=== PATIENT | male | born 1945 | race American Indian/Alaskan Native ===

== ENCOUNTER 2016-10-12 00:52 | Inpatient (IN) | payer MEDICARE ==
[2016-10-12 02:25] LABS: Basophils % (Auto) 0.1 % (0.0-1.8); Eosinophils % (Auto) 0.1 % (0.0-4.3); Hematocrit 38.6 % (35.5-45.6); Hemoglobin 11.9 gm/dl (11.8-15.2); Mean Corpuscular HGB Conc 31 % (32-34); Mean Corpuscular Hemoglobin 26 pg (28-32); Mean Corpuscular Volume 85 fl (84-94); Platelet Count 269 K/mm3 (140-440); Red Blood Count 4.55 M/mm3 (3.65-5.03); White Blood Count 8.5 K/mm3 (4.5-11.0)
[2016-10-12 02:26] LABS: Red Cell Distribution Width 21.5 % (13.2-15.2)
[2016-10-12 02:47] LABS: Anion Gap 25 mmol/L; BUN/Creatinine Ratio 72.85; Blood Urea Nitrogen 51 mg/dL (9-20); Carbon Dioxide 19 mmol/L (22-30); Chloride 100.1 mmol/L (98-107); Glucose 100 mg/dL (75-100); Sodium 140 mmol/L (137-145)
--- NOTE | 2016-10-12 03:28 | Emergency Department Report ---
ED General Adult HPI - General Chief complaint: Weakness Stated complaint: GENERAL ILLNESS Time Seen by Provider: 10/12/16 02:56 Source: patient, EMS Mode of arrival: Stretcher Limitations: No Limitations - History of Present Illness Initial comments: 71-year-old male with history of metastatic prostate cancer, prior spontaneous pneumothorax presented today because of cough and dehydration. Patient states that the cough hasn't gone on for the last 2 weeks. This is productive and very bothersome to the patient. He has not had much by mouth intake of fluids or food because of this. He denies any fevers or chills. He is a current tobacco smoker. No significant shortness of breath. Patient also has a chronic indwelling [place] which appears to have had decreased output. Severity scale (0 -10): 7 - Related Data Home Medications Medication Instructions Recorded Confirmed Last Taken Morphine Sulfate [Morphine Sulfate 60 mg PO BID PRN 01/23/15 10/12/16 1 Day Ago ER] 60 Previous Rx's Medication Instructions Recorded Last Taken Type Albuterol *Only Ed* [Proventil 2.5 mg IH Q4HRT PRN #30 nebu 11/24/15 1 Day Ago Rx 0.5% NEBS] Hydromorphone HCl [Dilaudid] 4 mg PO TID PRN #30 tablet 11/24/15 1 Day Ago Rx 4 Levofloxacin [Levaquin TAB] 500 mg PO QDAY #4 tablet 11/24/15 1 Day Ago Rx 500 Allergies Allergy/AdvReac Type Severity Reaction Status Date / Time Penicillins AdvReac Severe SEIZURES Verified 10/12/16 04:22 ED Review of Systems ROS: Stated complaint: GENERAL ILLNESS Other details as noted in HPI Comment: All other systems reviewed and negative Constitutional: denies: chills, fever Cardiovascular: denies: chest pain Gastrointestinal: denies: abdominal pain, vomiting Genitourinary: denies: dysuria Musculoskeletal: denies: back pain Skin: denies: rash Psychiatric: denies: anxiety ED Past Medical Hx - Past Medical History Previous Medical History?: Yes Hx Hypertension: Yes Hx GERD: Yes Hx Renal Disease: No Hx Arthritis: Yes Hx Seizures: No Hx Asthma: No Hx COPD: No Additional medical history: Stage 4 prostate cancer. Indwelling folley catheter - Surgical History Past Surgical History?: No - Social History Smoking Status: Never Smoker Substance Use Type: None - Medications Home Medications: Home Medications Medication Instructions Recorded Confirmed Last Taken Type Morphine Sulfate [Morphine Sulfate 60 mg PO BID PRN 01/23/15 10/12/16 1 Day Ago History ER] 60 Albuterol *Only Ed* [Proventil 2.5 mg IH Q4HRT PRN #30 nebu 11/24/15 10/12/16 1 Day Ago Rx 0.5% NEBS] Hydromorphone HCl [Dilaudid] 4 mg PO TID PRN #30 tablet 11/24/15 10/12/16 1 Day Ago Rx 4 Levofloxacin [Levaquin TAB] 500 mg PO QDAY #4 tablet 11/24/15 10/12/16 1 Day Ago Rx 500 ED Physical Exam - General Limitations: No Limitations General appearance: alert, in no apparent distress - Eye Eye exam: Present: normal appearance - ENT ENT exam: Present: mucous membranes dry - Respiratory Respiratory exam: Present: rhonchi. Absent: respiratory distress - Cardiovascular Cardiovascular Exam: Present: regular rate, normal rhythm - GI/Abdominal GI/Abdominal exam: Present: soft. Absent: distended, tenderness - Neurological Exam Neurological exam: Present: alert. Absent: motor sensory deficit - Psychiatric Psychiatric exam: Present: normal affect - Skin Skin exam: Present: other (ecchymosis along right lower leg and decubitus ulcers that don't appear to be acutely infected) ED Course Vital Signs 10/12/16 10/12/16 10/12/16 01:14 01:23 05:34 Temperature 97.8 F Pulse Rate 97 H 103 H 90 Respiratory 24 21 18 Rate Blood Pressure 115/75 Blood Pressure 115/74 115/78 106/71 [Left] O2 Sat by Pulse 97 98 97 Oximetry ED Medical Decision Making - Lab Data Result diagrams: 10/12/16 01:45 10/12/16 01:45 Critical care attestation.: If time is entered above; I have spent that time in minutes in the direct care of this critically ill patient, excluding procedure time. ED Disposition Clinical Impression: Dehydration Disposition: OP ADMITTED IP TO THIS HOSP Is pt being admited?: Yes Does the pt Need Aspirin: No Condition: Stable
[2016-10-12] MEDS ORDERED: NACL 0.9% 1000 ML 1,000 ML IV ONE ×2 (03:29)
--- NOTE | 2016-10-12 04:38 | XRay Report ---
FINAL REPORT PROCEDURE: XR CHEST 1V AP TECHNIQUE: Chest radiograph anteroposterior view. CPT 00124 HISTORY: cough COMPARISON: No prior studies are available for comparison. FINDINGS: Heart: Normal. Mediastinum/Vessels: Normal. Lungs/Pleural space: The lungs are well-expanded. There is a right pleural effusion. There are no discrete infiltrates or pneumothoraces.. Bony thorax: There are diffuse blastic skeletal lesions involving the right scapula, multiple ribs, thoracic spine and left humerus suspicious for metastatic malignancy.. Life support devices: None. IMPRESSION: The heart size is normal.. The lungs are well-expanded. There is a right pleural effusion. There are no discrete infiltrates or pneumothoraces.. There are diffuse blastic skeletal lesions involving the right scapula, multiple ribs, thoracic spine and left humerus suspicious for metastatic malignancy..
[2016-10-12] MEDS ORDERED: DULCOLAX PR PRN (05:26)
[2016-10-12] MEDS ORDERED: ZOFRAN IV PRN (05:26)
--- NOTE | 2016-10-12 05:39 | History and Physical Report ---
History of Present Illness Date of examination: 10/12/16 History of present illness: 71 -year-old man with a history of metastatic prostate cancer, GERD, hypertension comes emergency room because of generalized weakness, unable to get out of his wheelchair Patient denies chest pain, palpitation, shortness of breath, cough, abdominal pain, hematochezia, dysuria, frequency, focal weakness, dysarthria, fever chills , polydipsia polyuria, hot or cold intolerance, easy bruisability, or rash or bleeding from mucosal membrane, rhinorrhea, epistaxis, earache, tinnitus, blurry vision, eye discharge, anxiety, depression. Other review of systems negative PAST SURGICAL HISTORY: None SOCIAL HISTORY: Smoke half pack a day, no alcohol, no drug FAMILY HISTORY: Hypertension Medications and Allergies Allergies Allergy/AdvReac Type Severity Reaction Status Date / Time Penicillins AdvReac Severe SEIZURES Verified 10/12/16 04:22 Home Medications Medication Instructions Recorded Confirmed Last Taken Type Morphine Sulfate [Morphine Sulfate 60 mg PO BID PRN 01/23/15 10/12/16 1 Day Ago History ER] 60 Albuterol *Only Ed* [Proventil 2.5 mg IH Q4HRT PRN #30 nebu 11/24/15 10/12/16 1 Day Ago Rx 0.5% NEBS] Hydromorphone HCl [Dilaudid] 4 mg PO TID PRN #30 tablet 11/24/15 10/12/16 1 Day Ago Rx 4 Levofloxacin [Levaquin TAB] 500 mg PO QDAY #4 tablet 11/24/15 10/12/16 1 Day Ago Rx 500 Exam - Physical Exam Narrative exam: Gen. appearance: Patient lying in bed, no apparent distress HEENT: Normocephalic, atraumatic, pupils equally round and reactive to light, extraocular movement intact, and no sclericterus,. No JVD or thyromegaly or nodule,neck supple, no carotid bruit ,mucous membranes moist, no exudate or erythema Heart: S1, S2, regular rate and rhythm Lungs: Clear to auscultation bilaterally, breathing comfortable Abdomen:suprapubic catheter, Positive bowel sounds, nontender, nondistended, no organomegaly Extremity: No edema, cyanosis, clubbing Skin: Sacral decubitus, No rash, nodules, warm, dry Neuro: Oriented 3, cranial nerves II-12 intact, speech is fluent, motor and sensory intact - Constitutional Vitals: Temp Pulse Resp BP Pulse Ox 98.4 F 90 18 106/71 97 10/12/16 01:14 10/12/16 05:34 10/12/16 05:34 10/12/16 05:34 10/12/16 05:34 Results - Labs CBC & Chem 7: 10/12/16 01:45 10/12/16 01:45 Labs: Abnormal lab results 10/12/16 10/12/16 Range/Units 01:45 01:45 MCH 26 L (28-32) pg MCHC 31 L (32-34) % RDW 21.5 H (13.2-15.2) % Lymph % (Auto) 8.1 L (13.4-35.0) % [place] % (Auto) 9.7 H (0.0-7.3) % Lymph # 0.7 L (1.2-5.4) K/mm3 Seg Neutrophils % 82.0 H (40.0-70.0) % Carbon Dioxide 19 L (22-30) mmol/L BUN 51 H (9-20) mg/dL Creatinine 0.7 L (0.8-1.5) mg/dL - Imaging and Cardiology EKG: image reviewed Chest x-ray: report reviewed Assessment and Plan Failure to thrive Severe dehydration Sacral decubitus Metastatic prostate cancer Hypertension GERD Admit to medicine Start IV fluids, consult physical therapy Continue appropriate outpatient medications Consult wound care start DVT prophylaxis
--- NOTE | 2016-10-12 06:18 | Admit Criteria Form ---
Admission Criteria Documentation: DEHYDRATION Clinical Indications for Admission to Inpatient Care (Place 'X' for any and all applicable criteria): Admission is indicated for ANY ONE of the following (1)(2)(3)(4)(5): [X ]I. Inpatient admission required rather than observation care (see Dehydration: Observation Care guideline as appropriate) because of ANY ONE of the following: [ ]a) Vomiting that is severe or persistent [ ]b) Severe electrolyte abnormalities requiring inpatient care [ ]c) Hemodynamic instability [ ]d) IV fluid to replace significant ongoing losses (greater than 3 L/m2 per day (10) (11) [ ]e) Parenteral nutrition regimen that must be implemented on inpatient basis [X ]f) Other condition,treatment or monitoring requiring inpatient admission [ ]II. Serious cause for dehydration requiring acute hospitalization (eg, bowel obstruction, increased intracranial pressure, infectious cause) Extended stay beyond goal length of stay may be needed for(1)(3 )(4)(17): [ ]a) Chronic severe dehydration [ ]b) Persistent vital sign changes, severe electrolyte imbalance, or diagnosed cause of dehydration that requires continued hospitalization (eg, bowel obstruction, increased intracranial pressure) [ ]c) Older patients (65 years or older) [ ]d) Severe comorbid illness (eg, renal failure, heart failure, poorly controlled diabetes) The original [employer] content created by [employer] has been revised. The portions of the content which have been revised are identified through the use of italic text or in bold, and [facility] has neither reviewed nor approved the modified material. All other unmodified content is copyright [facility]. Please see references footnoted in the original [facility] edition 2016 Admission Criteria Met: Yes
[2016-10-12 06:47] LABS: Bacteria,Urine 3+ /HPF (Negative); Bilirubin,Urine NEG (Negative); Blood,Urine SM (Negative); Granular Casts,Urine 50 /LPF; Ketones,Urine TR mg/dL (Negative); Leukocyte Esterase,Urine MOD (Negative); Mucus,Urine 3+ /HPF; Nitrite,Urine NEG (Negative); Protein,Urine >500 mg/dL (Negative); Urobilinogen,Urine < 2.0 mg/dL (<2.0)
[2016-10-12] MEDS ORDERED: LOVENOX SUB-Q SCH (10:00)
[2016-10-12] MEDS: LOVENOX SUB-Q SCH (11:00)
[2016-10-12] MEDS: NACL 0.9% 1000 ML 1,000 ML IV SCH (14:23)
--- NOTE | 2016-10-12 18:15 | Event Note ---
Date: 10/12/16 Patient seen and examined, in no acute distress. Spoke with patients house keepers who are very concerned that patient cannot take care of himself. Patient may benefit from psych eval. Call placed to daughter [phone]
[2016-10-12] MEDS: TYLENOL PO PRN (23:52)
[2016-10-13] MEDS: NACL 0.9% 1000 ML 1,000 ML IV SCH (03:38)
[2016-10-13 07:53] LABS: Anion Gap 16 mmol/L; Blood Urea Nitrogen 24 mg/dL (9-20); Calcium 8.3 mg/dL (8.4-10.2); Carbon Dioxide 22 mmol/L (22-30); Chloride 108.5 mmol/L (98-107); Glucose 77 mg/dL (75-100); Potassium 3.4 mmol/L (3.6-5.0); Sodium 143 mmol/L (137-145)
[2016-10-13] MEDS: LOVENOX SUB-Q SCH (09:19)
[2016-10-13] MEDS: TYLENOL PO PRN (09:25)
[2016-10-13 10:29] LABS: Basophils % (Auto) 0.1 % (0.0-1.8); Eosinophils % (Auto) 0.8 % (0.0-4.3); Hematocrit 32.1 % (35.5-45.6); Hemoglobin 9.8 gm/dl (11.8-15.2); Mean Corpuscular HGB Conc 31 % (32-34); Mean Corpuscular Volume 84 fl (84-94); Platelet Count 220 K/mm3 (140-440); Red Blood Count 3.82 M/mm3 (3.65-5.03); White Blood Count 5.7 K/mm3 (4.5-11.0)
[2016-10-13 10:45] LABS: Mean Corpuscular Hemoglobin 26 pg (28-32); Red Cell Distribution Width 22.3 % (13.2-15.2)
[2016-10-13] MEDS ORDERED: PNEUMOVAX 23 IM ONE (12:00)
--- NOTE | 2016-10-13 15:50 | Consultation ---
History of Present Illness - Reason for Consult Consult date: 10/13/16 Reason for consult: psychiatric evaluation - Chief Complaint Chief complaint: "Some people think I'm a lunatic" 71 year old black male seen on the medical floor/step down unit for psychiatric evaluation. There is a question about his decision making capacity. He was sent to the hospital after his home health nurse called EMS for significant weight loss in a 2 week time period and malnourished state. He has been unable to ambulate or wheel himself to the location where the home helpers leave his food. He reports having mucous in his mouth and is unable to eat well as a result. He was lying in his urine for days. He attributes his decline to a nonfunctioning electric wheelchair. It stopped working in April,. Since then, he has been losing weight, stopped ambulating, has atrophy of muscles in his lower extremities, and has developed a decubitus. He believes his condition could improve if he goes to rehab and then has an electric wheelchair which works. He is aware he has prostate cancer and reports metastasis to the bone. He believes his most disabling condition is ankylosing spondylitis. He does not attribute this decline to cancer, stating that he has had it for 13 years and was not in this condition before his electric wheelchair stopped working. He is alert and oriented x 4. He provided past medical history and past psychosocial history as well as the most recent concerns with his healthcare POA , his daughter. She lives in [place] and recently visited him 3 weeks ago. During that time she recommended he go to a prison facility. He declined and she called [facility]. He was determined to have decisional capacity at that time and could not be moved against his will. Now he would like his grandson to be his power of instant potato processing supervisor for healthcare. He states his daughter does not have his best interests in mind and he is worried about where she will put him. He wants to stay in the area. He is willing to go rehab. He states the thoughts of a prison facility or hospice scares him. He wants to update his living will. He denies suicidal ideation but is saddened about his loss of independence and that he cannot cook like he did in the past. He denies homicidal ideation. He denies AVH. No signs of psychosis elicited. He has a history of depression in the 1979 and spent 30 days inpatient. He believes he was possibly diagnosed with bipolar but reports it resolved when he removed himself from toxic people and a toxic environment. He has a history of polysubstance abuse but it is remote. Last use was when he was in his 30s. Medications and Allergies Allergies Allergy/AdvReac Type Severity Reaction Status Date / Time Penicillins AdvReac Severe SEIZURES Verified 10/12/16 04:22 Home Medications Medication Instructions Recorded Confirmed Last Taken Type Morphine Sulfate [Morphine Sulfate 60 mg PO BID PRN 01/23/15 10/12/16 1 Day Ago History ER] 60 Albuterol *Only Ed* [Proventil 2.5 mg IH Q4HRT PRN #30 nebu 11/24/15 10/12/16 1 Day Ago Rx 0.5% NEBS] Hydromorphone HCl [Dilaudid] 4 mg PO TID PRN #30 tablet 11/24/15 10/12/16 1 Day Ago Rx 4 Levofloxacin [Levaquin TAB] 500 mg PO QDAY #4 tablet 11/24/15 10/12/16 1 Day Ago Rx 500 Active Meds: Active Medications Acetaminophen (Tylenol) 650 mg PO Q4H PRN PRN Reason: Pain MILD(1-3)/Fever >100.5/BURGOS Last Admin: 10/13/16 09:25 Dose: 650 mg Bisacodyl (Dulcolax) 10 mg WI QDAY PRN PRN Reason: Constipation unrelieved by MOM Enoxaparin Sodium (Lovenox) 40 mg SUB-Q QDAY@1000 LUCRECIA Last Admin: 10/13/16 09:19 Dose: 40 mg Sodium Chloride (Nacl 0.9% 1000 Ml) 1,000 mls @ 75 mls/hr IV DIRECT LUCRECIA Last Admin: 10/13/16 03:38 Dose: 75 mls/hr Ondansetron HCl (Zofran) 4 mg IV Q8H PRN PRN Reason: N/V unrelieved by Reglan Past psychiatric history - Past Medical History Past Medical History: cancer, other () - past Psychiatric treatment and history Psych: Depression - Social History Social history: (x5), Lives alone, full code Mental Status Exam - Vital signs Last Vital Signs Temp 97.6 F 10/13/16 10:00 Pulse 97 H 10/13/16 10:30 Resp 20 10/13/16 10:00 BP 86/58 10/13/16 10:00 Pulse Ox 96 10/13/16 08:41 - Exam Narrative exam: appearance is malnourished Patient is calm and cooperative. Orientation: time, place, person Affect: normal Mood: appropriate Thought content: other (no SI, no HI) Thought Process: Intact Perceptions: none Speech: other (speech is soft and slow) Concentration: focused Motor activity: other (minimal, affected by physical condition) Level of consciousness: alert Memory: Intact, Recent Intact, Remote Intact Sleep Symptoms: None Appetite: decreased Interaction: cooperative Mini mental status exam(if necessary): 24-30 Results Result Diagrams: 10/13/16 07:10 10/13/16 04:00 Abnormal lab results 10/13/16 10/13/16 Range/Units 04:00 07:10 Hgb 9.8 L (11.8-15.2) gm/dl Hct 32.1 L D (35.5-45.6) % MCH 26 L (28-32) pg MCHC 31 L (32-34) % RDW 22.3 H (13.2-15.2) % Lymph % (Auto) 8.3 L (13.4-35.0) % [place] % (Auto) 8.5 H (0.0-7.3) % Lymph # 0.5 L (1.2-5.4) K/mm3 Seg Neutrophils % 82.3 H (40.0-70.0) % Potassium 3.4 L (3.6-5.0) mmol/L Chloride 108.5 H (98-107) mmol/L BUN 24 H (9-20) mg/dL Creatinine 0.4 L (0.8-1.5) mg/dL Calcium 8.3 L (8.4-10.2) mg/dL All other labs normal. Assessment and Plan Assessment and plan: Impression: Patient has normal MMSE. He lacks knowledge of his condition/prognosis. History of depression. He does not have criteria for MDD but is at risk. Recommendation: Be Cognitive Level Screen Assessment is indicated. Patient's wishes of having his living will and healthcare POA changed need to be addressed Provide education about his conditions in a clear/concise manner.
--- NOTE | 2016-10-13 17:09 | Progress Note ---
Assessment and Plan Assessment and plan: 71 -year-old man with a history of metastatic prostate cancer, GERD, hypertension comes emergency room because of generalized weakness, unable to get out of his wheelchair Patient denies chest pain, palpitation, shortness of breath, cough, abdominal pain, hematochezia, dysuria, frequency, focal weakness, dysarthria, fever chills , polydipsia polyuria, hot or cold intolerance, easy bruisability, or rash or bleeding from mucosal membrane, rhinorrhea, epistaxis, earache, tinnitus, blurry vision, eye discharge, anxiety, depression. Other review of systems negative * Failure to thrive * Severe dehydration * Sacral decubitus stage 2 POA * Metastatic prostate cancer STAGE 4-per Daughter-Deisy * Hypertension * GERD PLAN: * Continue IV fluids, Discussed with care takers and also with daughter, appears patient has declined significantly in the last 1 month. He appears very emaciated as is he has not been able to care for himself * S/P [address] radiation, Dr RUCKER is oncologist. Dr MIGUEL is primary, Dr Ramirez- Urologist per Daughter * Psych consult * Speech EVALUATION * Daughter very concerned about patients rapid decline. Plan discussed with her in detail * fall precautions * Wound care * DVT/GI prophy History Interval history: Patient seen and examined, reports choking with food sometimes. no other adverse event noted or reported by nursing staff Hospitalist Physical - Physical exam Narrative exam: VITAL SIGNS: Reviewed. GENERAL: NAD. contracted, Vital signs as documented. HEAD: No signs of head trauma. Marked temporal wasting EYES: Pupils are equal. Extraocular motions intact. EARS: Hearing grossly intact. MOUTH: Oropharynx is normal. NECK: No adenopathy, no JVD. CHEST: Chest with clear breath sounds bilaterally. No wheezes, rales, or rhonchi. CARDIAC: Regular rate and rhythm. S1 and S2, without murmurs, gallops, or rubs. VASCULAR: +2 Edema b/l foot. Peripheral pulses normal and equal in all extremities. ABDOMEN: Soft, without detectable tenderness. No sign of distention. No rebound or guarding, and no masses palpated. Bowel Sounds normal. MUSCULOSKELETAL: Very thin and frail, limited range of motion secondary to contracture in lower ext. Extremities without clubbing, cyanosis. +2 edema. subrapubic catheter NEUROLOGIC EXAM: Alert and oriented x 3. No focal sensory or strength deficits. Speech normal. Follows commands. PSYCHIATRIC: Mood normal. SKIN: multiple skin excoriations. Stage 2 scral decub - Constitutional Vitals: Temp Pulse Resp BP Pulse Ox 97.6 F 97 H 20 86/58 96 10/13/16 10:00 10/13/16 10:30 10/13/16 10:00 10/13/16 10:00 10/13/16 08:41 Results - Labs CBC & Chem 7: 10/13/16 07:10 10/13/16 04:00 Labs: Laboratory Last Values WBC 5.7 K/mm3 (4.5-11.0) 10/13/16 07:10 RBC 3.82 M/mm3 (3.65-5.03) 10/13/16 07:10 Hgb 9.8 gm/dl (11.8-15.2) L 10/13/16 07:10 Hct 32.1 % (35.5-45.6) L D 10/13/16 07:10 MCV 84 fl (84-94) 10/13/16 07:10 MCH 26 pg (28-32) L 10/13/16 07:10 MCHC 31 % (32-34) L 10/13/16 07:10 RDW 22.3 % (13.2-15.2) H 10/13/16 07:10 Plt Count 220 K/mm3 (140-440) 10/13/16 07:10 Lymph % (Auto) 8.3 % (13.4-35.0) L 10/13/16 07:10 [place] % (Auto) 8.5 % (0.0-7.3) H 10/13/16 07:10 Eos % (Auto) 0.8 % (0.0-4.3) 10/13/16 07:10 Baso % (Auto) 0.1 % (0.0-1.8) 10/13/16 07:10 Lymph # 0.5 K/mm3 (1.2-5.4) L 10/13/16 07:10 [place] # 0.5 K/mm3 (0.0-0.8) 10/13/16 07:10 Eos # 0.0 K/mm3 (0.0-0.4) 10/13/16 07:10 Baso # 0.0 K/mm3 (0.0-0.1) 10/13/16 07:10 Seg Neutrophils % 82.3 % (40.0-70.0) H 10/13/16 07:10 Seg Neutrophils # 4.6 K/mm3 (1.8-7.7) 10/13/16 07:10 Sodium 143 mmol/L (137-145) 10/13/16 04:00 Potassium 3.4 mmol/L (3.6-5.0) L 10/13/16 04:00 Chloride 108.5 mmol/L (98-107) H 10/13/16 04:00 Carbon Dioxide 22 mmol/L (22-30) 10/13/16 04:00 Anion Gap 16 mmol/L 10/13/16 04:00 BUN 24 mg/dL (9-20) H 10/13/16 04:00 Creatinine 0.4 mg/dL (0.8-1.5) L 10/13/16 04:00 Estimated GFR > 60 ml/min 10/13/16 04:00 BUN/Creatinine Ratio 60.00 % 10/13/16 04:00 Glucose 77 mg/dL (75-100) 10/13/16 04:00 POC Glucose 88 (70-105) 10/13/16 11:52 Calcium 8.3 mg/dL (8.4-10.2) L 10/13/16 04:00 Urine Color Yellow (Yellow) 10/12/16 05:34 Urine Turbidity Turbid (Clear) 10/12/16 05:34 Urine pH 8.0 (5.0-7.0) H 10/12/16 05:34 Ur Specific [place] 1.020 (1.003-1.030) 10/12/16 05:34 Urine Protein >500 mg/dL (Negative) 10/12/16 05:34 Urine Glucose (UA) Neg mg/dL (Negative) 10/12/16 05:34 Urine Ketones Tr mg/dL (Negative) 10/12/16 05:34 Urine Blood Sm (Negative) 10/12/16 05:34 Urine Nitrite Neg (Negative) 10/12/16 05:34 Urine Bilirubin Neg (Negative) 10/12/16 05:34 Urine Urobilinogen < 2.0 mg/dL (<2.0) 10/12/16 05:34 Ur Leukocyte Esterase Mod (Negative) 10/12/16 05:34 Urine WBC (Auto) 2.0 /HPF (0.0-6.0) 10/12/16 05:34 Urine RBC (Auto) 6.0 /HPF (0.0-6.0) 10/12/16 05:34 U Epithel Cells (Auto) 3.0 /HPF (0-13.0) 10/12/16 05:34 Urine Bacteria (Auto) 3+ /HPF (Negative) 10/12/16 05:34 Triple Phos Crystals 3+ 10/12/16 05:34 Amorphous Crystals 3+ 10/12/16 05:34 Hyaline Casts 13 /LPF 10/12/16 05:34 Granular Casts 50 /LPF 10/12/16 05:34 Urine Mucus 3+ /HPF 10/12/16 05:34
[2016-10-14] MEDS: NACL 0.9% 1000 ML 1,000 ML IV SCH (00:45)
[2016-10-14] MEDS ORDERED: D5NS 1,000 ML IV SCH (08:00)
[2016-10-14] MEDS: DUONEB 0.5 MG-3 MG/3 ML SOLN IH SCH ×3 (08:45→20:16)
[2016-10-14] MEDS: LOVENOX SUB-Q SCH (09:33)
--- NOTE | 2016-10-14 10:52 | Fluoroscopy Report ---
MODIFIED BARIUM SWALLOW INDICATION: Dysphagia with puree and thickened liquids. COMPARISON: None similar. FINDINGS: Fluoroscopy provided by radiologist for speech therapist to assess the swallowing mechanism. Food items of various consistencies given. No aspiration or penetration noted. Few radiopaque dental fillings and missing teeth. Cervical spondylosis with possible bony metastases. IMPRESSION: Successful modified barium swallow. Please refer to detailed report from speech pathologist. Thank you for the opportunity to participate in this patient's care.
--- NOTE | 2016-10-14 14:22 | Progress Note ---
Assessment and Plan occ leakage from chronic SPT will change tube order gu cart dictated Subjective Date of service: 10/14/16 Principal diagnosis: CA prostate retention Objective - Constitutional Vitals: Vital Signs - 12hr 10/14/16 10/14/16 10/14/16 05:00 07:47 08:45 Temperature 97.3 F L Pulse Rate [ 80 Bilateral Upper Lobe] Pulse Rate [ 78 From Monitor] Respiratory 22 Rate Respiratory 18 Rate [Bilateral Upper Lobe] Blood Pressure 93/61 [Right Arm] O2 Sat by Pulse 96 Oximetry 10/14/16 10/14/16 10/14/16 08:52 09:30 10:00 Temperature 99.8 F H Pulse Rate [ 82 Bilateral Upper Lobe] Pulse Rate [ 73 88 From Monitor] Respiratory 18 Rate Respiratory 18 Rate [Bilateral Upper Lobe] Blood Pressure 97/64 [Right Arm] O2 Sat by Pulse Oximetry 10/14/16 14:19 Temperature Pulse Rate [ 88 Bilateral Upper Lobe] Pulse Rate [ From Monitor] Respiratory Rate Respiratory 18 Rate [Bilateral Upper Lobe] Blood Pressure [Right Arm] O2 Sat by Pulse Oximetry General appearance: Present: mild distress - Respiratory Respiratory effort: accessory muscle use Extremities: abnormal - Gastrointestinal General gastrointestinal: Present: soft (spt) - Labs CBC & Chem 7: 10/13/16 07:10 10/13/16 04:00 Labs: Abnormal lab results 10/13/16 10/14/16 Range/Units 04:00 07:11 POC Glucose 68 L (70-105) Albumin 2.1 L (3.9-5) g/dL
--- NOTE | 2016-10-14 14:29 | Progress Note ---
Assessment and Plan Assessment and plan: 71 -year-old man with a history of metastatic prostate cancer, GERD, hypertension comes emergency room because of generalized weakness, unable to get out of his wheelchair Patient denies chest pain, palpitation, shortness of breath, cough, abdominal pain, hematochezia, dysuria, frequency, focal weakness, dysarthria, fever chills , polydipsia polyuria, hot or cold intolerance, easy bruisability, or rash or bleeding from mucosal membrane, rhinorrhea, epistaxis, earache, tinnitus, blurry vision, eye discharge, anxiety, depression. Other review of systems negative * Failure to thrive * Severe dehydration * Odynophagia * Sacral decubitus stage 2 POA * Metastatic prostate cancer STAGE 4-per Daughter-Deisy * Hypertension * Hypokalemia * Severe debility secondary to frailty * Malfunctioning Suprapubic catheter * GERD PLAN: * Continue IV fluids, Discussed with care takers and also with daughter, appears patient has declined significantly in the last 1 month. He appears very emaciated as is he has not been able to care for himself * S/P 27 radiation, Dr RUCKER is oncologist. Dr MIGUEL is primary, Dr Ramirez- Urologist per Daughter * Urology consult * Replace K * FAILED SWALLOW EVAL. GI consult for PEG tube palcement * Psych input noted * speech report noted * Daughter very concerned about patients rapid decline. Plan discussed with her in detail * fall precautions * Wound care * DVT/GI prophy History Interval history: Patient seen and examined, reports thick secretion in the oral cavity. no other adverse event noted or reported by nursing staff Hospitalist Physical - Physical exam Narrative exam: VITAL SIGNS: Reviewed. GENERAL: NAD. contracted, Vital signs as documented. HEAD: No signs of head trauma. Marked temporal wasting EYES: Pupils are equal. Extraocular motions intact. EARS: Hearing grossly intact. MOUTH: Oropharynx is normal. NECK: No adenopathy, no JVD. CHEST: Chest with clear breath sounds bilaterally. No wheezes, rales, or rhonchi. CARDIAC: Regular rate and rhythm. S1 and S2, without murmurs, gallops, or rubs. VASCULAR: +2 Edema b/l foot. Peripheral pulses normal and equal in all extremities. ABDOMEN: Soft, without detectable tenderness. No sign of distention. No rebound or guarding, and no masses palpated. Bowel Sounds normal. MUSCULOSKELETAL: Very thin and frail, limited range of motion secondary to contracture in lower ext. Extremities without clubbing, cyanosis. +2 edema. subrapubic catheter NEUROLOGIC EXAM: Alert and oriented x 3. No focal sensory or strength deficits. Speech normal. Follows commands. PSYCHIATRIC: Mood normal. SKIN: multiple skin excoriations. Stage 2 scral decub - Constitutional Vitals: Temp Pulse Resp BP Pulse Ox 99.8 F H 90 18 97/64 96 10/14/16 09:30 10/14/16 14:26 10/14/16 14:26 10/14/16 09:30 10/14/16 07:47 General appearance: Present: mild distress Results - Labs CBC & Chem 7: 10/13/16 07:10 10/13/16 04:00 Labs: Laboratory Last Values WBC 5.7 K/mm3 (4.5-11.0) 10/13/16 07:10 RBC 3.82 M/mm3 (3.65-5.03) 10/13/16 07:10 Hgb 9.8 gm/dl (11.8-15.2) L 10/13/16 07:10 Hct 32.1 % (35.5-45.6) L D 10/13/16 07:10 MCV 84 fl (84-94) 10/13/16 07:10 MCH 26 pg (28-32) L 10/13/16 07:10 MCHC 31 % (32-34) L 10/13/16 07:10 RDW 22.3 % (13.2-15.2) H 10/13/16 07:10 Plt Count 220 K/mm3 (140-440) 10/13/16 07:10 Lymph % (Auto) 8.3 % (13.4-35.0) L 10/13/16 07:10 [place] % (Auto) 8.5 % (0.0-7.3) H 10/13/16 07:10 Eos % (Auto) 0.8 % (0.0-4.3) 10/13/16 07:10 Baso % (Auto) 0.1 % (0.0-1.8) 10/13/16 07:10 Lymph # 0.5 K/mm3 (1.2-5.4) L 10/13/16 07:10 [place] # 0.5 K/mm3 (0.0-0.8) 10/13/16 07:10 Eos # 0.0 K/mm3 (0.0-0.4) 10/13/16 07:10 Baso # 0.0 K/mm3 (0.0-0.1) 10/13/16 07:10 Seg Neutrophils % 82.3 % (40.0-70.0) H 10/13/16 07:10 Seg Neutrophils # 4.6 K/mm3 (1.8-7.7) 10/13/16 07:10 Sodium 143 mmol/L (137-145) 10/13/16 04:00 Potassium 3.4 mmol/L (3.6-5.0) L 10/13/16 04:00 Chloride 108.5 mmol/L (98-107) H 10/13/16 04:00 Carbon Dioxide 22 mmol/L (22-30) 10/13/16 04:00 Anion Gap 16 mmol/L 10/13/16 04:00 BUN 24 mg/dL (9-20) H 10/13/16 04:00 Creatinine 0.4 mg/dL (0.8-1.5) L 10/13/16 04:00 Estimated GFR > 60 ml/min 10/13/16 04:00 BUN/Creatinine Ratio 60.00 % 10/13/16 04:00 Glucose 77 mg/dL (75-100) 10/13/16 04:00 POC Glucose 103 (70-105) 10/14/16 09:18 Calcium 8.3 mg/dL (8.4-10.2) L 10/13/16 04:00 Albumin 2.1 g/dL (3.9-5) L 10/13/16 04:00 Urine Color Yellow (Yellow) 10/12/16 05:34 Urine Turbidity Turbid (Clear) 10/12/16 05:34 Urine pH 8.0 (5.0-7.0) H 10/12/16 05:34 Ur Specific [place] 1.020 (1.003-1.030) 10/12/16 05:34 Urine Protein >500 mg/dL (Negative) 10/12/16 05:34 Urine Glucose (UA) Neg mg/dL (Negative) 10/12/16 05:34 Urine Ketones Tr mg/dL (Negative) 10/12/16 05:34 Urine Blood Sm (Negative) 10/12/16 05:34 Urine Nitrite Neg (Negative) 10/12/16 05:34 Urine Bilirubin Neg (Negative) 10/12/16 05:34 Urine Urobilinogen < 2.0 mg/dL (<2.0) 10/12/16 05:34 Ur Leukocyte Esterase Mod (Negative) 10/12/16 05:34 Urine WBC (Auto) 2.0 /HPF (0.0-6.0) 10/12/16 05:34 Urine RBC (Auto) 6.0 /HPF (0.0-6.0) 10/12/16 05:34 U Epithel Cells (Auto) 3.0 /HPF (0-13.0) 10/12/16 05:34 Urine Bacteria (Auto) 3+ /HPF (Negative) 10/12/16 05:34 Triple Phos Crystals 3+ 10/12/16 05:34 Amorphous Crystals 3+ 10/12/16 05:34 Hyaline Casts 13 /LPF 10/12/16 05:34 Granular Casts 50 /LPF 10/12/16 05:34 Urine Mucus 3+ /HPF 10/12/16 05:34
[2016-10-14] MEDS ORDERED: POTASSIUM CHLORIDE FEEDTUBE ONE (14:30)
--- NOTE | 2016-10-14 16:06 | Progress Note ---
Subjective - Reason for Consult Consult date: 10/14/16 Reason for consult: Psychiatry Follow-up - Chief Complaint Chief complaint: "I will need help" 71 year old black male seen on the medical floor/step down unit for psychiatric evaluation. There is a question about his decision making capacity. Today patient is calm and cooperative during the assessment. He stated that he feel like he need assistance with care once he is discharged. He stated that he was "stubborn" earlier about not wanting to go to a long-term. He stated, "I will go to the nursing facility." He feels that his daughter don't consider his best interest at this time and would like his grandson Guicho Adair to be his GERA. He was able to spell the word WORLD backwards, recall 3 /3 numbers (13, 16 , 4) within 5 mins, and ID the current and past presidents of the [place]. Patient stated that he has stage 4 prostate cancer confirmed by the hospitalist note per his daughter Marisol. He denies SI/HI's, AVH's or sleep disturbance. Patient is currently NPO, difficulty swallowing per his assigned RN. Mental Status Exam - Vital signs Last Vital Signs Temp 99.8 F H 10/14/16 09:30 Pulse 90 10/14/16 14:26 Resp 18 10/14/16 14:26 BP 97/64 10/14/16 09:30 Pulse Ox 96 10/14/16 07:47 - Exam Narrative exam: MSE: Appearance: cooperative, calm Behavior: good eye contact Speech: regular rate and tone Mood: "not bad" Affect: congruent to mood Thought Process: linear Thought Content: denies SI/HI's and AVH's Motor Activity: lying in bed Cognition: a/ox 3 Insight: fair Judgment: fair Assessment and Plan Impression: 71 year old black male seen on the medical floor/step down unit for psychiatric evaluation. There is a question about his decision making capacity. Today patient is calm and cooperative during the assessment. He stated that he feel like he need assistance with care once he is discharged. He stated that he was "stubborn" earlier about not wanting to go to a long-term. He stated, "I want to go to the nursing facility." He feels that his daughter don't consider his best interest at this time and would like his grandson Guicho Adair to be his GERA. Recommendation/Plan: Be Cognitive Level Screen Assessment is indicated. Patient's wishes of having his living will and healthcare POA changed. Provide education about his conditions in a clear/concise manner.
--- NOTE | 2016-10-14 20:38 | Gastroenterology Consultation ---
History of Present Illness - Reason for Consult Consult date: 10/14/16 PEG tube evaluation Requesting physician: YOBANY TEE - History of Present Illness Mr Lombardi is a 71 yo aam, with h/o prostate cancer, decubitus ulcers s/p colostomy, and poor functional status who presents from home with worsening mental status, weight loss, and poor po intake. At the time of exam, patient was awake/alert and answering questions appropriately. Patient lives alone, and states he had been tolerating po mostly well prior to admission. He states he would have occasional episodes of dysphagia/choking sensation when "mucous" is in back of throat. Denies n/v, abd pain, or pain with meals. Past History Past Medical History: cancer, other () Social history: (x5), Lives alone, full code Medications and Allergies Allergies Allergy/AdvReac Type Severity Reaction Status Date / Time Penicillins AdvReac Severe SEIZURES Verified 10/12/16 04:22 Home Medications Medication Instructions Recorded Confirmed Last Taken Type Albuterol *Only Ed* [Proventil 2.5 mg IH Q4HRT PRN #30 nebu 11/24/15 10/12/16 1 Day Ago Rx 0.5% NEBS] Morphine Sulfate [Morphine Sulfate 60 mg PO BID PRN #14 cap.er.pel 10/15/16 Unknown Rx ER] Active Meds: Active Medications Acetaminophen (Tylenol) 650 mg PO Q4H PRN PRN Reason: Pain MILD(1-3)/Fever >100.5/BURGOS Last Admin: 10/13/16 09:25 Dose: 650 mg Albuterol/Ipratropium (Duoneb 0.5 Mg-3 Mg/3 Ml Soln) 1 ampul IH Q6HRT PENDING SALE TO [facility] Last Admin: 10/14/16 20:16 Dose: 1 ampul Bisacodyl (Dulcolax) 10 mg [place] QDAY PRN PRN Reason: Constipation unrelieved by MOM Enoxaparin Sodium (Lovenox) 40 mg SUB-Q QDAY@1000 LUCRECIA Last Admin: 10/14/16 09:33 Dose: 40 mg Dextrose/Sodium Chloride (D5ns) 1,000 mls @ 75 mls/hr IV DIRECT LUCRECIA Last Admin: 10/14/16 07:53 Dose: 75 mls/hr Potassium Chloride (Kcl 10meq/100ml) 10 meq in 100 mls @ 100 mls/hr IV Q1H LUCRECIA Stop: 10/15/16 00:59 Ondansetron HCl (Zofran) 4 mg IV Q8H PRN PRN Reason: N/V unrelieved by Reglan Review of Systems - Review of Systems All systems: negative Constitutional: weight loss, fatigue, weakness Respiratory: cough Gastrointestinal: See HPI Musculoskeletal: muscle weakness Exam - Exam Narrative Exam: Gen: NAD, chronically ill appearing male Head: ct/at Mouth: dry mm, no oral lesions Eyes: anicteric, eomi CV: RRR Lungs: CTAB, non labored Abd: soft, left sided colostomy, nt Ext: no edema Psych: appropriate mood and affect - Constitutional Vital Signs: Temp Pulse Resp BP Pulse Ox 99.8 F H 78 18 97/64 96 10/14/16 09:30 10/14/16 20:16 10/14/16 20:16 10/14/16 09:30 10/14/16 20:16 - Labs CBC & Chem 7: 10/15/16 12:59 10/15/16 12:59 Lab Results: Laboratory Results - last 24 hr 10/13/16 10/14/16 10/14/16 21:58 07:11 09:18 POC Glucose 88 68 L 103 10/14/16 16:59 POC Glucose 66 L Assessment and Plan weight loss/dysphagia - speech evaluation and recommendations reviewed. Lkely with oropharyngeal dysphagia. Discussed recommendations for PEG tube placement , however pt currently states he does not want a feeding tube. Discussed risks/ complications with pt in regards to continued po intake and he expressed understanding.
[2016-10-14] MEDS: D5NS 1,000 ML IV SCH (21:47)
[2016-10-14] MEDS: KCL 10MEQ/100ML 10 MEQ/100 ML BAG IV SCH ×3 (21:49→23:49)
[2016-10-15] MEDS: KCL 10MEQ/100ML 10 MEQ/100 ML BAG IV SCH (01:16)
[2016-10-15] MEDS: DUONEB 0.5 MG-3 MG/3 ML SOLN IH SCH ×4 (03:13→21:39)
--- NOTE | 2016-10-15 05:16 | Consultation ---
The patient is a 71-year-old gentleman who looks much older than his stated age with metastatic prostate cancer, chronic suprapubic tube. Lower extremity contractures and chronic pain medication, who presents with leakage from the suprapubic tube, which is due to be changed over the next few days. Urological consultation was obtained. PAST MEDICAL HISTORY: As mentioned above including COPD. ALLERGIES: PENICILLIN. SOCIAL HISTORY: Smoker. FAMILY HISTORY: Vascular disease. REVIEW OF SYSTEMS: Weakness and diminished mobility, fatigue. PHYSICAL EXAMINATION: GENERAL: He is cachectic. He is in discomfort. He is in no distress. ABDOMEN: Soft with a suprapubic tube dressing which is pretty dry now and the tube is draining. He has very poor hygiene with foul odor throughout the body. IMPRESSION: As mentioned above, condition is guarded. His creatinine is normal. We will order the cart. He has decubiti. He has contractures and we will change the tube later today in the morning. JOB# [id number] OLE/NAWAF
[2016-10-15] MEDS ORDERED: NACL 0.9% 1000 ML 1,000 ML IV ONE (09:00)
[2016-10-15] MEDS: LOVENOX SUB-Q SCH (10:11)
--- NOTE | 2016-10-15 11:16 | Gastroenterology Progress Note ---
<SARA GREENWOOD KUNAL - Last Filed: 10/15/16 11:16> Assessment and Plan Mr Lombardi is a 71 yo aam who presents from home with worsening mental status, weight loss, and poor po intake. Patient awake and alert at time of exam, able to answer questions appropriately (improved since admission). Pt states he has trouble swallowing due to "mucous build up" in throat. States he is able to tolerate meals otherwise and is requesting to eat. -Initially patient refused PEG tube placement -Swallow eval recommends NPO for dyspahgia and short term means of nutrition, however therapy is ordered for 2+ weeks. Patient is now agreeable to PEG tube placement. -Will check AM labs. Lovenox will need to be stopped prior to procedure. -Will discuss with Dr. Alberto regarding timing of procedure. Subjective Date of service: 10/15/16 Principal diagnosis: CA prostate retention Interval history: No acute events overnight. We were called back as the patient now wants PEG tube. Objective - Constitutional Vitals: Temp Pulse Resp BP Pulse Ox 98.4 F 98 H 18 100/60 100 10/15/16 08:00 10/15/16 08:00 10/15/16 08:00 10/15/16 10:00 10/15/16 07:48 General appearance: no acute distress - EENT Eyes: EOM intact ENT: poor dentition, other (thin) - Cardiovascular Rhythm: regular Heart Sounds: Present: S1 & S2 - Gastrointestinal General gastrointestinal: Present: non-tender, non-distended, normal bowel sounds - Integumentary Integumentary: Present: warm, dry - Labs CBC & Chem 7: 10/13/16 07:10 10/13/16 04:00 Labs: Laboratory Results - last 24 hr 10/14/16 10/14/16 10/15/16 16:59 21:59 00:49 POC Glucose 66 L 117 H 108 H 10/15/16 08:32 POC Glucose 127 H <FINA ALBERTO - Last Filed: 10/15/16 23:00> Assessment and Plan Patient seen and examined. Agree with note by Purvi Greenwood. Pt now agreeable for PEG tube placement. Will follow-up tomorrow to determine timing of procedure. Objective - Constitutional Vitals: Temp Pulse Resp BP Pulse Ox 98.4 F 103 H 17 100/60 100 10/15/16 08:00 10/15/16 21:48 10/15/16 21:48 10/15/16 10:00 10/15/16 21:39 - Labs CBC & Chem 7: 10/15/16 12:59 10/15/16 12:59 Labs: Laboratory Results - last 24 hr 10/15/16 10/15/16 10/15/16 00:49 08:32 11:37 WBC RBC Hgb Hct MCV MCH MCHC RDW Plt Count PT INR Sodium Potassium Chloride Carbon Dioxide Anion Gap BUN Creatinine Estimated GFR BUN/Creatinine Ratio Glucose POC Glucose 108 H 127 H 108 H Calcium 10/15/16 10/15/16 10/15/16 12:59 12:59 12:59 WBC 5.7 RBC 4.28 Hgb 11.0 L Hct 35.7 MCV 84 MCH 26 L MCHC 31 L RDW 21.8 H Plt Count 239 PT 18.2 H INR 1.51 H Sodium 144 Potassium 3.7 Chloride 108 H Carbon Dioxide 21 L Anion Gap 19 BUN 5 L Creatinine 0.3 L Estimated GFR > 60 BUN/Creatinine Ratio 16.66 Glucose 124 H POC Glucose Calcium 8.0 L
--- NOTE | 2016-10-15 11:42 | Discharge Summary ---
Providers - Providers Date of Admission: 10/12/16 05:26 Date of discharge: 10/15/16 Attending physician: YOBANY TEE MD 10/12/16 06:12 Consult to Wound/ET Nurse [CONS] Routine Reason For Exam: wound eval Physical Therapy Evaluation and Treat [CONS] Routine Comment: Reason For Exam: ftt 10/12/16 12:18 Occupational Therapy Evaluate and Treat [CONS] Routine Comment: Reason For Exam: OT EVAL FOR POSSIBLE SNF VS HHC. Need pravin score 10/12/16 12:25 Consult to Dietitian/Nutrition [CONS] Stat Physician Instructions: Reason For Exam: Nutritional Issues/Pressure Ulcers Reason for Consult: Pressure Ulcers 10/13/16 09:56 Consult to Mental Health [CONS] Routine Reason For Exam: eval for capacity for decison making Place consult to:: mental health Notified:: JOANA Phone number called:: [phone] Was contact made?: Yes If yes, spoke with:: JOANA Time called:: 10:25 10/13/16 10:37 Speech Therapy Evaluation and Treat [CONS] Routine Reason For Exam: congitive assessment 10/13/16 13:55 Physical Therapy Evaluation and Treat [CONS] Urgent Comment: Need for range of motion- lives at home alone Reason For Exam: Contractures of the bilateral knees Mode of Transport?: Wheelchair Weight bearing status?: Full wt bearing Assistive devices?: No: Currently bed bound 10/14/16 07:50 Consult to Physician [CONS] Routine Consulting Provider: BRAXTON XIE Reason For Exam: leaking suprapubic catheter Place consult to:: DR. CHAVIRA Notified:: Phone number called:: [phone] Was contact made?: Yes If yes, spoke with:: FAINA Time called:: 08:51 10/14/16 11:24 Consult to Physician [CONS] Routine Consulting Provider: FINA ALBERTO Reason For Exam: PEG Tube placement Place consult to:: [facility] Notified:: Dr. Fina Alberto Phone number called:: [phone] Was contact made?: Yes If yes, spoke with:: Tricia Lombardi called:: 11:25 Comment:: RE:CONSUTL TO DR. 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 Hospitalization Condition: Stable Disposition: DC/TX SNF W [facility] Time spent for discharge: 35 mins Exam - Constitutional Vitals: Temp Pulse Resp BP Pulse Ox 98.4 F 98 H 18 100/60 100 10/15/16 08:00 10/15/16 08:00 10/15/16 08:00 10/15/16 10:00 10/15/16 07:48 Plan Activity: advance as tolerated, fall precautions Diet: per dietitian instruction Additional Instructions: FOLLOW WITH ONCOLOGST Follow up with: PRIMARY CARE, [Primary Care Provider] - 3-5 Days BRAXTON XIE MD [Staff Physician] - 7 Days Prescriptions: Morphine Sulfate [Morphine Sulfate ER] 60 mg PO BID PRN #14 cap.er.pel PRN Reason: Pain
[2016-10-15] MEDS: D5NS 1,000 ML IV SCH (12:13)
--- NOTE | 2016-10-15 12:42 | Progress Note ---
Assessment and Plan spt changed to #20 irrigated well occ leak with spasm offered to place #22 pt refused f/u out pt dr zuluaga Subjective Date of service: 10/15/16 Principal diagnosis: CA prostate retention Objective - Constitutional Vitals: Vital Signs - 12hr 10/15/16 10/15/16 10/15/16 03:14 04:00 07:46 Temperature 97.6 F Pulse Rate [ 88 83 Bilateral Upper Lobe] Pulse Rate [ 85 From Monitor] Respiratory Rate Respiratory 16 16 Rate [Bilateral Upper Lobe] Blood Pressure 96/60 [Right Arm] O2 Sat by Pulse Oximetry 10/15/16 10/15/16 10/15/16 07:48 07:58 08:00 Temperature 98.4 F Pulse Rate [ 82 Bilateral Upper Lobe] Pulse Rate [ 98 H From Monitor] Respiratory 18 Rate Respiratory 16 Rate [Bilateral Upper Lobe] Blood Pressure 98/60 [Right Arm] O2 Sat by Pulse 100 Oximetry 10/15/16 10:00 Temperature Pulse Rate [ Bilateral Upper Lobe] Pulse Rate [ From Monitor] Respiratory Rate Respiratory Rate [Bilateral Upper Lobe] Blood Pressure 100/60 [Right Arm] O2 Sat by Pulse Oximetry General appearance: Present: mild distress - Labs CBC & Chem 7: 10/13/16 07:10 10/13/16 04:00 Labs: Abnormal lab results 10/14/16 10/14/16 10/15/16 Range/Units 16:59 21:59 00:49 POC Glucose 66 L 117 H 108 H (70-105) 10/15/16 10/15/16 Range/Units 08:32 11:37 POC Glucose 127 H 108 H (70-105)
--- NOTE | 2016-10-15 13:19 | Query- Nutrition ---
Dear ____Christiano Date: 10/15/16 Director Advanced/CDS: Edellaura Rueda Phone#:____[phone] Exercise your independent professional judgment when responding to query. Questions asked do not imply a particular answer is desired or expected. We greatly appreciate your clarification on this issue. Clinical Documentation States: 71 year old male was admitted on 10/12/16. The Hospitalist progress note (10/14/16) states " Assessment and plan: 71 -year-old man with a history of metastatic prostate cancer, GERD, hypertension comes emergency room because of generalized weakness, unable to get out of his wheelchair Patient denies chest pain, palpitation, shortness of breath, cough, abdominal pain, hematochezia, dysuria, frequency, focal weakness, dysarthria, fever chills , polydipsia polyuria, hot or cold intolerance, easy bruisability, or rash or bleeding from mucosal membrane, rhinorrhea, epistaxis, earache, tinnitus, blurry vision, eye discharge, anxiety, depression. Other review of systems negative Failure to thrive Odynophagia Metastatic prostate cancer STAGE 4-per Daughter-Deisy Severe debility secondary to frailty " The Gastroentereology progress note (10/15/16) states " Assessment and Plan Mr Lombardi is a 71 yo aam who presents from home with worsening mental status, weight loss, and poor po intake. " Clinical Findings Show: BMI: 14.7 Albumin: 2.1 Please select the most appropriate option 3 [] Mild Malnutrition [] Mild - Moderate Malnutrition [x] Moderate - Severe Malnutrition [] Severe Malnutrition Serum Albumin 2.8 to 3.4 g/dl or Pre-albumin 5 to 17 mg/dl1,2 Inadequate nutritional intake1,2,3,4 NPO > 5 days Weight loss: 5% in 1 month or 7.5% in 3 months or 10% in 6 months1, 3,4 BMI 16 to 18.4 or Weight <90% of ideal body weight1,2,3,4 Serum Albumin < 2.8 g/ dl1,2 Lymphocytes < 1500/ L2 Inadequate nutritional intake3, high stress e.g. major trauma, sepsis,pancreatitis, t[place] etc. Decubitus ulcers1,2, , skin breakdown2, easy hair pluckability2 Weight <80% standard for height2 Triceps skin fold <3 mm2 Mid-arm muscle circumference <15 cm2 Creatinine-height index <60% standard2 [ ] Cachexia [ ] Emaciated w/Malnutrition [ ] Other: [ ] Unable to determine [ ] Comment/Explanation: Present on Admission: [ y] Yes (Y) [ ] Clinically undeterminable (W) [ ] No (N) Please also document response in your Progress Notes and/or Discharge Summary and indicate if the condition was present on admission. MTDD
[2016-10-15 14:20] LABS: Hematocrit 35.7 % (35.5-45.6); Mean Corpuscular HGB Conc 31 % (32-34); Mean Corpuscular Hemoglobin 26 pg (28-32); Mean Corpuscular Volume 84 fl (84-94); Platelet Count 239 K/mm3 (140-440); Red Blood Count 4.28 M/mm3 (3.65-5.03); Red Cell Distribution Width 21.8 % (13.2-15.2); White Blood Count 5.7 K/mm3 (4.5-11.0)
[2016-10-15 14:22] LABS: Anion Gap 19 mmol/L; BUN/Creatinine Ratio 16.66; Blood Urea Nitrogen 5 mg/dL (9-20); Carbon Dioxide 21 mmol/L (22-30); Chloride 108 mmol/L (98-107); Glucose 124 mg/dL (75-100); Potassium 3.7 mmol/L (3.6-5.0); Sodium 144 mmol/L (137-145)
[2016-10-15 14:44] LABS: INR 1.51 (0.87-1.13)
[2016-10-15] MEDS ORDERED: STERILE WATER IV ONE (15:56)
[2016-10-15] MEDS ORDERED: XYLOCAINE 2% UROJET ONE (15:56)
--- NOTE | 2016-10-15 16:12 | Progress Note ---
Assessment and Plan Assessment and plan: 71 -year-old man with a history of metastatic prostate cancer, GERD, hypertension comes emergency room because of generalized weakness, unable to get out of his wheelchair Patient denies chest pain, palpitation, shortness of breath, cough, abdominal pain, hematochezia, dysuria, frequency, focal weakness, dysarthria, fever chills , polydipsia polyuria, hot or cold intolerance, easy bruisability, or rash or bleeding from mucosal membrane, rhinorrhea, epistaxis, earache, tinnitus, blurry vision, eye discharge, anxiety, depression. Other review of systems negative * Failure to thrive * Severe dehydration * Odynophagia * Sacral decubitus stage 2 POA * Metastatic prostate cancer STAGE 4-per Daughter-Deisy * Hypertension * Hypokalemia * Severe debility secondary to frailty * Malfunctioning Suprapubic catheter * GERD PLAN: * That initially refused the PEG tube placement but now agreeable * Continue IV fluids, Discussed with care takers and also with daughter, appears patient has declined significantly in the last 1 month. He appears very emaciated as is he has not been able to care for himself * S/P [address] radiation, Dr RUCKER is oncologist. Dr MIGUEL is primary, Dr Springer- Urologist per Daughter * Urology bruits noted suprapubic catheter exchanged for #20% refused 22. Will follow with Dr. Springer consultation * Replace K * FAILED SWALLOW EVAL. GI consult for PEG tube palcement * Psych input noted * speech report noted * Daughter very concerned about patients rapid decline. Plan discussed with her in detail * fall precautions * Wound care * DVT/GI prophy History Interval history: Patient seen and examined, reports thick secretion in the oral cavity. He is hungry I explained the need for the PEG tube placement patienthe would like to get the PEG tube. No other adverse event noted or reported by nursing staff Hospitalist Physical - Physical exam Narrative exam: VITAL SIGNS: Reviewed. GENERAL: NAD. contracted, Vital signs as documented. HEAD: No signs of head trauma. Marked temporal wasting EYES: Pupils are equal. Extraocular motions intact. EARS: Hearing grossly intact. MOUTH: Oropharynx is normal. NECK: No adenopathy, no JVD. CHEST: Chest with clear breath sounds bilaterally. No wheezes, rales, or rhonchi. CARDIAC: Regular rate and rhythm. S1 and S2, without murmurs, gallops, or rubs. VASCULAR: +2 Edema b/l foot. Peripheral pulses normal and equal in all extremities. ABDOMEN: Soft, without detectable tenderness. No sign of distention. No rebound or guarding, and no masses palpated. Bowel Sounds normal. MUSCULOSKELETAL: Very thin and frail, limited range of motion secondary to contracture in lower ext. Extremities without clubbing, cyanosis. +2 edema. subrapubic catheter NEUROLOGIC EXAM: Alert and oriented x 3. No focal sensory or strength deficits. Speech normal. Follows commands. PSYCHIATRIC: Mood normal. SKIN: multiple skin excoriations. Stage 2 scral decub - Constitutional Vitals: Temp Pulse Resp BP Pulse Ox 98.4 F 92 H 20 100/60 100 10/15/16 08:00 10/15/16 14:37 10/15/16 14:37 10/15/16 10:00 10/15/16 07:48 General appearance: Present: mild distress Results - Labs CBC & Chem 7: 10/15/16 12:59 10/15/16 12:59 Labs: Laboratory Last Values WBC 5.7 K/mm3 (4.5-11.0) 10/15/16 12:59 RBC 4.28 M/mm3 (3.65-5.03) 10/15/16 12:59 Hgb 11.0 gm/dl (11.8-15.2) L 10/15/16 12:59 Hct 35.7 % (35.5-45.6) 10/15/16 12:59 MCV 84 fl (84-94) 10/15/16 12:59 MCH 26 pg (28-32) L 10/15/16 12:59 MCHC 31 % (32-34) L 10/15/16 12:59 RDW 21.8 % (13.2-15.2) H 10/15/16 12:59 Plt Count 239 K/mm3 (140-440) 10/15/16 12:59 Lymph % (Auto) 8.3 % (13.4-35.0) L 10/13/16 07:10 [place] % (Auto) 8.5 % (0.0-7.3) H 10/13/16 07:10 Eos % (Auto) 0.8 % (0.0-4.3) 10/13/16 07:10 Baso % (Auto) 0.1 % (0.0-1.8) 10/13/16 07:10 Lymph # 0.5 K/mm3 (1.2-5.4) L 10/13/16 07:10 [place] # 0.5 K/mm3 (0.0-0.8) 10/13/16 07:10 Eos # 0.0 K/mm3 (0.0-0.4) 10/13/16 07:10 Baso # 0.0 K/mm3 (0.0-0.1) 10/13/16 07:10 Seg Neutrophils % 82.3 % (40.0-70.0) H 10/13/16 07:10 Seg Neutrophils # 4.6 K/mm3 (1.8-7.7) 10/13/16 07:10 PT 18.2 Sec. (12.2-14.9) H 10/15/16 12:59 INR 1.51 (0.87-1.13) H 10/15/16 12:59 Sodium 144 mmol/L (137-145) 10/15/16 12:59 Potassium 3.7 mmol/L (3.6-5.0) 10/15/16 12:59 Chloride 108 mmol/L (98-107) H 10/15/16 12:59 Carbon Dioxide 21 mmol/L (22-30) L 10/15/16 12:59 Anion Gap 19 mmol/L 10/15/16 12:59 BUN 5 mg/dL (9-20) L 10/15/16 12:59 Creatinine 0.3 mg/dL (0.8-1.5) L 10/15/16 12:59 Estimated GFR > 60 ml/min 10/15/16 12:59 BUN/Creatinine Ratio 16.66 % 10/15/16 12:59 Glucose 124 mg/dL (75-100) H 10/15/16 12:59 POC Glucose 108 (70-105) H 10/15/16 11:37 Calcium 8.0 mg/dL (8.4-10.2) L 10/15/16 12:59 Albumin 2.1 g/dL (3.9-5) L 10/13/16 04:00 Urine Color Yellow (Yellow) 10/12/16 05:34 Urine Turbidity Turbid (Clear) 10/12/16 05:34 Urine pH 8.0 (5.0-7.0) H 10/12/16 05:34 Ur Specific [place] 1.020 (1.003-1.030) 10/12/16 05:34 Urine Protein >500 mg/dL (Negative) 10/12/16 05:34 Urine Glucose (UA) Neg mg/dL (Negative) 10/12/16 05:34 Urine Ketones Tr mg/dL (Negative) 10/12/16 05:34 Urine Blood Sm (Negative) 10/12/16 05:34 Urine Nitrite Neg (Negative) 10/12/16 05:34 Urine Bilirubin Neg (Negative) 10/12/16 05:34 Urine Urobilinogen < 2.0 mg/dL (<2.0) 10/12/16 05:34 Ur Leukocyte Esterase Mod (Negative) 10/12/16 05:34 Urine WBC (Auto) 2.0 /HPF (0.0-6.0) 10/12/16 05:34 Urine RBC (Auto) 6.0 /HPF (0.0-6.0) 10/12/16 05:34 U Epithel Cells (Auto) 3.0 /HPF (0-13.0) 10/12/16 05:34 Urine Bacteria (Auto) 3+ /HPF (Negative) 10/12/16 05:34 Triple Phos Crystals 3+ 10/12/16 05:34 Amorphous Crystals 3+ 10/12/16 05:34 Hyaline Casts 13 /LPF 10/12/16 05:34 Granular Casts 50 /LPF 10/12/16 05:34 Urine Mucus 3+ /HPF 10/12/16 05:34
[2016-10-15] MEDS ORDERED: NACL 0.9% 1000 ML 1,000 ML ONE (17:15)
--- NOTE | 2016-10-15 18:28 | Progress Note ---
Subjective - Reason for Consult Consult date: 10/15/16 Reason for consult: psychiatric follow up - Chief Complaint Chief complaint: "I want to have a drink of water" 71 year old black male seen on the medical floor/step down unit for psychiatric evaluation. There was a question about his decision making capacity. Today patient is calm and cooperative during the assessment. He continues to report his desire to change his POA for healthcare to his grandson. He denies SI/HI's, AVH's or sleep disturbance. Patient is currently NPO, difficulty swallowing per his assigned RN. This is what he focused on today. He does not see why he cannot take a sip of water. He agreed to a peg tube with the understanding of his malnourished state. 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 Mental Status Exam - Vital signs Last Vital Signs Temp 98.4 F 10/15/16 08:00 Pulse 92 H 10/15/16 14:37 Resp 20 10/15/16 14:37 BP 100/60 10/15/16 10:00 Pulse Ox 100 10/15/16 07:48 Assessment and Plan Impression: Patient has normal MMSE. He has agreed to placement in a care home facility. He expresses improved insight into his condition compared to his initial evaluation. History of depression. He does not have criteria for MDD but is at risk. Recommendation: Be Cognitive Level Screen Assessment is indicated. Patient's wishes of having his living will and healthcare POA changed need to be addressed-he states this was addressed Provide education about his conditions in a clear/concise manner.
[2016-10-16] MEDS: DUONEB 0.5 MG-3 MG/3 ML SOLN IH SCH ×2 (02:14→20:54)
[2016-10-16] MEDS ORDERED: NACL 0.9% 1000 ML 1,000 ML IV ONE (08:12)
[2016-10-16] MEDS: LOVENOX SUB-Q SCH (11:56)
--- NOTE | 2016-10-16 12:47 | Gastroenterology Progress Note ---
Assessment and Plan - Patient Problems (1) Dysphagia Current Visit: Yes Status: Acute Qualifiers: Dysphagia type: D Plan to address problem: Care discussed with patient who is agreeable to PEG. PEG will be planned for tomorrow. (2) Dehydration Current Visit: Yes Status: Acute (3) Metastatic malignant neoplasm to prostate Current Visit: No Status: Chronic Subjective Date of service: 10/16/16 Principal diagnosis: impaired swallowing Interval history: The patient reports being at baseline. He has moderate difficulty swallowing. Objective - Constitutional Vitals: Temp Pulse Resp BP Pulse Ox 97.9 F 93 H 20 93/54 98 10/16/16 10:00 10/16/16 10:00 10/16/16 10:00 10/16/16 10:00 10/16/16 10:00 General appearance: no acute distress - EENT ENT: hearing intact, clear oral mucosa - Respiratory Respiratory effort: normal Respiratory: bilateral: CTA - Cardiovascular Rhythm: regular - Gastrointestinal General gastrointestinal: Present: soft, non-tender, non-distended, normal bowel sounds - Neurologic Neurological: alert and oriented x3 - Labs CBC & Chem 7: 10/15/16 12:59 10/15/16 12:59 Labs: Laboratory Results - last 24 hr 10/15/16 10/15/16 10/15/16 12:59 12:59 12:59 WBC 5.7 RBC 4.28 Hgb 11.0 L Hct 35.7 MCV 84 MCH 26 L MCHC 31 L RDW 21.8 H Plt Count 239 PT 18.2 H INR 1.51 H Sodium 144 Potassium 3.7 Chloride 108 H Carbon Dioxide 21 L Anion Gap 19 BUN 5 L Creatinine 0.3 L Estimated GFR > 60 BUN/Creatinine Ratio 16.66 Glucose 124 H POC Glucose Calcium 8.0 L 10/16/16 10/16/16 05:53 11:46 WBC RBC Hgb Hct MCV MCH MCHC RDW Plt Count PT INR Sodium Potassium Chloride Carbon Dioxide Anion Gap BUN Creatinine Estimated GFR BUN/Creatinine Ratio Glucose POC Glucose 98 90 Calcium
--- NOTE | 2016-10-16 15:47 | Progress Note ---
Assessment and Plan Assessment and plan: 71 -year-old man with a history of metastatic prostate cancer, GERD, hypertension comes emergency room because of generalized weakness, unable to get out of his wheelchair Patient denies chest pain, palpitation, shortness of breath, cough, abdominal pain, hematochezia, dysuria, frequency, focal weakness, dysarthria, fever chills , polydipsia polyuria, hot or cold intolerance, easy bruisability, or rash or bleeding from mucosal membrane, rhinorrhea, epistaxis, earache, tinnitus, blurry vision, eye discharge, anxiety, depression. Other review of systems negative * Failure to thrive * Severe dehydration * Odynophagia * Sacral decubitus stage 2 POA * Metastatic prostate cancer STAGE 4-per Daughter-Deisy * Hypertension * Hypokalemia * Hypercoagluopathy * Severe debility secondary to frailty * Malfunctioning Suprapubic catheter * GERD PLAN: * That initially refused the PEG tube placement but now agreeable- will be done tomorrow * Continue IV fluids, Discussed with care takers and also with daughter, appears patient has declined significantly in the last 1 month. He appears very emaciated as is he has not been able to care for himself * S/P [address] radiation, [address] RUCKER is oncologist. Dr MIGUEL is primary, Dr Springer- Urologist per Daughter * Urology bruits noted suprapubic catheter exchanged for #20% refused 22. still with leak around the catheter. Will follow with Dr. Springer consultation * Replace K * FAILED SWALLOW EVAL. GI consult for PEG tube palcement * Psych input noted * speech report noted * Daughter very concerned about patients rapid decline. Plan discussed with her in detail * fall precautions * Wound care * DVT/GI prophy History Interval history: Patient seen and examined, reports thick secretion in the oral cavity. Reports he is hungre No other adverse event noted or reported by nursing staff Hospitalist Physical - Physical exam Narrative exam: VITAL SIGNS: Reviewed. GENERAL: NAD. contracted, Vital signs as documented. HEAD: No signs of head trauma. Marked temporal wasting EYES: Pupils are equal. Extraocular motions intact. EARS: Hearing grossly intact. MOUTH: Oropharynx is normal. NECK: No adenopathy, no JVD. CHEST: Chest with clear breath sounds bilaterally. No wheezes, rales, or rhonchi. CARDIAC: Regular rate and rhythm. S1 and S2, without murmurs, gallops, or rubs. VASCULAR: +2 Edema b/l foot. Peripheral pulses normal and equal in all extremities. ABDOMEN: Soft, without detectable tenderness. No sign of distention. No rebound or guarding, and no masses palpated. Bowel Sounds normal. MUSCULOSKELETAL: Very thin and frail, limited range of motion secondary to contracture in lower ext. Extremities without clubbing, cyanosis. +2 edema. subrapubic catheter NEUROLOGIC EXAM: Alert and oriented x 3. No focal sensory or strength deficits. Speech normal. Follows commands. PSYCHIATRIC: Mood normal. SKIN: multiple skin excoriations. Stage 2 scral decub - Constitutional Vitals: Temp Pulse Resp BP Pulse Ox 97.9 F 93 H 20 93/54 98 10/16/16 10:00 10/16/16 10:00 10/16/16 10:00 10/16/16 10:00 10/16/16 10:00 General appearance: Present: mild distress Results - Labs CBC & Chem 7: 10/15/16 12:59 10/15/16 12:59 Labs: Laboratory Last Values WBC 5.7 K/mm3 (4.5-11.0) 10/15/16 12:59 RBC 4.28 M/mm3 (3.65-5.03) 10/15/16 12:59 Hgb 11.0 gm/dl (11.8-15.2) L 10/15/16 12:59 Hct 35.7 % (35.5-45.6) 10/15/16 12:59 MCV 84 fl (84-94) 10/15/16 12:59 MCH 26 pg (28-32) L 10/15/16 12:59 MCHC 31 % (32-34) L 10/15/16 12:59 RDW 21.8 % (13.2-15.2) H 10/15/16 12:59 Plt Count 239 K/mm3 (140-440) 10/15/16 12:59 Lymph % (Auto) 8.3 % (13.4-35.0) L 10/13/16 07:10 [place] % (Auto) 8.5 % (0.0-7.3) H 10/13/16 07:10 Eos % (Auto) 0.8 % (0.0-4.3) 10/13/16 07:10 Baso % (Auto) 0.1 % (0.0-1.8) 10/13/16 07:10 Lymph # 0.5 K/mm3 (1.2-5.4) L 10/13/16 07:10 [place] # 0.5 K/mm3 (0.0-0.8) 10/13/16 07:10 Eos # 0.0 K/mm3 (0.0-0.4) 10/13/16 07:10 Baso # 0.0 K/mm3 (0.0-0.1) 10/13/16 07:10 Seg Neutrophils % 82.3 % (40.0-70.0) H 10/13/16 07:10 Seg Neutrophils # 4.6 K/mm3 (1.8-7.7) 10/13/16 07:10 PT 18.2 Sec. (12.2-14.9) H 10/15/16 12:59 INR 1.51 (0.87-1.13) H 10/15/16 12:59 Sodium 144 mmol/L (137-145) 10/15/16 12:59 Potassium 3.7 mmol/L (3.6-5.0) 10/15/16 12:59 Chloride 108 mmol/L (98-107) H 10/15/16 12:59 Carbon Dioxide 21 mmol/L (22-30) L 10/15/16 12:59 Anion Gap 19 mmol/L 10/15/16 12:59 BUN 5 mg/dL (9-20) L 10/15/16 12:59 Creatinine 0.3 mg/dL (0.8-1.5) L 10/15/16 12:59 Estimated GFR > 60 ml/min 10/15/16 12:59 BUN/Creatinine Ratio 16.66 % 10/15/16 12:59 Glucose 124 mg/dL (75-100) H 10/15/16 12:59 POC Glucose 90 (70-105) 10/16/16 11:46 Calcium 8.0 mg/dL (8.4-10.2) L 10/15/16 12:59 Albumin 2.1 g/dL (3.9-5) L 10/13/16 04:00 Urine Color Yellow (Yellow) 10/12/16 05:34 Urine Turbidity Turbid (Clear) 10/12/16 05:34 Urine pH 8.0 (5.0-7.0) H 10/12/16 05:34 Ur Specific [place] 1.020 (1.003-1.030) 10/12/16 05:34 Urine Protein >500 mg/dL (Negative) 10/12/16 05:34 Urine Glucose (UA) Neg mg/dL (Negative) 10/12/16 05:34 Urine Ketones Tr mg/dL (Negative) 10/12/16 05:34 Urine Blood Sm (Negative) 10/12/16 05:34 Urine Nitrite Neg (Negative) 10/12/16 05:34 Urine Bilirubin Neg (Negative) 10/12/16 05:34 Urine Urobilinogen < 2.0 mg/dL (<2.0) 10/12/16 05:34 Ur Leukocyte Esterase Mod (Negative) 10/12/16 05:34 Urine WBC (Auto) 2.0 /HPF (0.0-6.0) 10/12/16 05:34 Urine RBC (Auto) 6.0 /HPF (0.0-6.0) 10/12/16 05:34 U Epithel Cells (Auto) 3.0 /HPF (0-13.0) 10/12/16 05:34 Urine Bacteria (Auto) 3+ /HPF (Negative) 10/12/16 05:34 Triple Phos Crystals 3+ 10/12/16 05:34 Amorphous Crystals 3+ 10/12/16 05:34 Hyaline Casts 13 /LPF 10/12/16 05:34 Granular Casts 50 /LPF 10/12/16 05:34 Urine Mucus 3+ /HPF 10/12/16 05:34
[2016-10-16] MEDS: TYLENOL PO PRN (23:45)
[2016-10-17] MEDS: DUONEB 0.5 MG-3 MG/3 ML SOLN IH SCH ×4 (02:35→20:16)
[2016-10-17] MEDS: LOVENOX SUB-Q SCH (09:52)
--- NOTE | 2016-10-17 16:18 | Progress Note ---
Assessment and Plan Assessment and plan: 71 -year-old man with a history of metastatic prostate cancer, GERD, hypertension comes emergency room because of generalized weakness, unable to get out of his wheelchair Patient denies chest pain, palpitation, shortness of breath, cough, abdominal pain, hematochezia, dysuria, frequency, focal weakness, dysarthria, fever chills , polydipsia polyuria, hot or cold intolerance, easy bruisability, or rash or bleeding from mucosal membrane, rhinorrhea, epistaxis, earache, tinnitus, blurry vision, eye discharge, anxiety, depression. Other review of systems negative * Failure to thrive * Severe dehydration * Odynophagia-improving * Sacral decubitus stage 2 POA * Metastatic prostate cancer STAGE 4-per Daughter-Deisy * Hypertension * Hypokalemia * Hypercoagluopathy * Severe debility secondary to frailty * Malfunctioning Suprapubic catheter * GERD PLAN: * That initially refused the PEG tube placement but now agreeable- will be done tomorrow * Continue IV fluids, Discussed with care takers and also with daughter, appears patient has declined significantly in the last 1 month. He appears very emaciated as is he has not been able to care for himself * S/P [address] radiation, Dr RUCKER is oncologist. Dr MIGUEL is primary, Dr Loco * Urology bruits noted suprapubic catheter exchanged for #20% refused 22. still with leak around the catheter. Will follow with Dr. Loco consultation * Replace K * tolerating diet. CAN DISCHARGE TO REHAB ONCE BED AVAILABLE * Psych input noted * speech report noted * Daughter very concerned about patients rapid decline. Plan discussed with her in detail * fall precautions * Wound care * DVT/GI prophy History Interval history: Patient seen and examined, Tolerated some diet yesterday and today, now not sure if he wants to get the peg tube. wants to think more about it. Hospitalist Physical - Physical exam Narrative exam: VITAL SIGNS: Reviewed. GENERAL: NAD. contracted, Vital signs as documented. HEAD: No signs of head trauma. Marked temporal wasting EYES: Pupils are equal. Extraocular motions intact. EARS: Hearing grossly intact. MOUTH: Oropharynx is normal. NECK: No adenopathy, no JVD. CHEST: Chest with clear breath sounds bilaterally. No wheezes, rales, or rhonchi. CARDIAC: Regular rate and rhythm. S1 and S2, without murmurs, gallops, or rubs. VASCULAR: +2 Edema b/l foot. Peripheral pulses normal and equal in all extremities. ABDOMEN: Soft, without detectable tenderness. No sign of distention. No rebound or guarding, and no masses palpated. Bowel Sounds normal. MUSCULOSKELETAL: Very thin and frail, limited range of motion secondary to contracture in lower ext. Extremities without clubbing, cyanosis. +2 edema. subrapubic catheter NEUROLOGIC EXAM: Alert and oriented x 3. No focal sensory or strength deficits. Speech normal. Follows commands. PSYCHIATRIC: Mood normal. SKIN: multiple skin excoriations. Stage 2 scral decub - Constitutional Vitals: Temp Pulse Resp BP Pulse Ox 97.8 F 95 H 20 93/63 95 10/17/16 10:00 10/17/16 10:00 10/17/16 10:00 10/17/16 10:00 10/17/16 10:00 General appearance: Present: mild distress Results - Labs CBC & Chem 7: 10/15/16 12:59 10/15/16 12:59 Labs: Laboratory Last Values WBC 5.7 K/mm3 (4.5-11.0) 10/15/16 12:59 RBC 4.28 M/mm3 (3.65-5.03) 10/15/16 12:59 Hgb 11.0 gm/dl (11.8-15.2) L 10/15/16 12:59 Hct 35.7 % (35.5-45.6) 10/15/16 12:59 MCV 84 fl (84-94) 10/15/16 12:59 MCH 26 pg (28-32) L 10/15/16 12:59 MCHC 31 % (32-34) L 10/15/16 12:59 RDW 21.8 % (13.2-15.2) H 10/15/16 12:59 Plt Count 239 K/mm3 (140-440) 10/15/16 12:59 Lymph % (Auto) 8.3 % (13.4-35.0) L 10/13/16 07:10 [place] % (Auto) 8.5 % (0.0-7.3) H 10/13/16 07:10 Eos % (Auto) 0.8 % (0.0-4.3) 10/13/16 07:10 Baso % (Auto) 0.1 % (0.0-1.8) 10/13/16 07:10 Lymph # 0.5 K/mm3 (1.2-5.4) L 10/13/16 07:10 [place] # 0.5 K/mm3 (0.0-0.8) 10/13/16 07:10 Eos # 0.0 K/mm3 (0.0-0.4) 10/13/16 07:10 Baso # 0.0 K/mm3 (0.0-0.1) 10/13/16 07:10 Seg Neutrophils % 82.3 % (40.0-70.0) H 10/13/16 07:10 Seg Neutrophils # 4.6 K/mm3 (1.8-7.7) 10/13/16 07:10 PT 18.2 Sec. (12.2-14.9) H 10/15/16 12:59 INR 1.51 (0.87-1.13) H 10/15/16 12:59 Sodium 144 mmol/L (137-145) 10/15/16 12:59 Potassium 3.7 mmol/L (3.6-5.0) 10/15/16 12:59 Chloride 108 mmol/L (98-107) H 10/15/16 12:59 Carbon Dioxide 21 mmol/L (22-30) L 10/15/16 12:59 Anion Gap 19 mmol/L 10/15/16 12:59 BUN 5 mg/dL (9-20) L 10/15/16 12:59 Creatinine 0.3 mg/dL (0.8-1.5) L 10/15/16 12:59 Estimated GFR > 60 ml/min 10/15/16 12:59 BUN/Creatinine Ratio 16.66 % 10/15/16 12:59 Glucose 124 mg/dL (75-100) H 10/15/16 12:59 POC Glucose 90 (70-105) 10/17/16 11:53 Calcium 8.0 mg/dL (8.4-10.2) L 10/15/16 12:59 Albumin 2.1 g/dL (3.9-5) L 10/13/16 04:00 Urine Color Yellow (Yellow) 10/12/16 05:34 Urine Turbidity Turbid (Clear) 10/12/16 05:34 Urine pH 8.0 (5.0-7.0) H 10/12/16 05:34 Ur Specific [place] 1.020 (1.003-1.030) 10/12/16 05:34 Urine Protein >500 mg/dL (Negative) 10/12/16 05:34 Urine Glucose (UA) Neg mg/dL (Negative) 10/12/16 05:34 Urine Ketones Tr mg/dL (Negative) 10/12/16 05:34 Urine Blood Sm (Negative) 10/12/16 05:34 Urine Nitrite Neg (Negative) 10/12/16 05:34 Urine Bilirubin Neg (Negative) 10/12/16 05:34 Urine Urobilinogen < 2.0 mg/dL (<2.0) 10/12/16 05:34 Ur Leukocyte Esterase Mod (Negative) 10/12/16 05:34 Urine WBC (Auto) 2.0 /HPF (0.0-6.0) 10/12/16 05:34 Urine RBC (Auto) 6.0 /HPF (0.0-6.0) 10/12/16 05:34 U Epithel Cells (Auto) 3.0 /HPF (0-13.0) 10/12/16 05:34 Urine Bacteria (Auto) 3+ /HPF (Negative) 10/12/16 05:34 Triple Phos Crystals 3+ 10/12/16 05:34 Amorphous Crystals 3+ 10/12/16 05:34 Hyaline Casts 13 /LPF 10/12/16 05:34 Granular Casts 50 /LPF 10/12/16 05:34 Urine Mucus 3+ /HPF 10/12/16 05:34
--- NOTE | 2016-10-17 19:13 | Gastroenterology Progress Note ---
Assessment and Plan - Patient Problems (1) Dysphagia Current Visit: Yes Status: Acute Qualifiers: Dysphagia type: D Plan to address problem: Improved and tolerating pureed foods. PEG will be deferred for now and patient will be observed in Rehab as to his progress. I will s/o and f/u PRN. Thank you for asking us to participate in his care. (2) Dehydration Current Visit: Yes Status: Acute (3) Metastatic malignant neoplasm to prostate Current Visit: No Status: Chronic Subjective Date of service: 10/17/16 Principal diagnosis: impaired swallowing Interval history: Patient was able to tolerate a pureed diet Objective - Constitutional Vitals: Temp Pulse Resp BP Pulse Ox 97.8 F 95 H 20 93/63 95 10/17/16 10:00 10/17/16 10:00 10/17/16 10:00 10/17/16 10:00 10/17/16 10:00 General appearance: no acute distress - EENT ENT: hearing intact, clear oral mucosa, dentition normal - Cardiovascular Rhythm: regular - Gastrointestinal General gastrointestinal: Present: soft, non-tender, non-distended, normal bowel sounds - Neurologic Neurological: alert and oriented x3 - Labs CBC & Chem 7: 10/15/16 12:59 10/15/16 12:59 Labs: Laboratory Results - last 24 hr 10/17/16 10/17/16 10/17/16 00:07 05:47 11:53 POC Glucose 98 101 90 10/17/16 18:16 POC Glucose 83
[2016-10-18] MEDS: DUONEB 0.5 MG-3 MG/3 ML SOLN IH SCH ×2 (02:39→08:01)
[2016-10-18 09:50] VITALS: BP 98/65
[2016-10-18] MEDS: LOVENOX SUB-Q SCH (11:13)
== END 2016-10-18 13:15 | DRG 919 ==
LOC: ED 00:52 → CC2 05:26
PROVIDERS: ADMIT Internal Medicine; ATTEND Internal Medicine
DX: T85.618A Breakdown (mechanical) of other specified internal prosthetic devices, implants and grafts, initial encounter (principal); E43 Unspecified severe protein-calorie malnutrition; Z68.1 Body mass index [BMI] 19.9 or less, adult; D68.59 Other primary thrombophilia; E86.0 Dehydration; C61 Malignant neoplasm of prostate; K21.9 Gastro-esophageal reflux disease without esophagitis; R62.7 Adult failure to thrive; R54 Age-related physical debility; I10 Essential (primary) hypertension; M19.90 Unspecified osteoarthritis, unspecified site; F17.210 Nicotine dependence, cigarettes, uncomplicated; F32.9 Major depressive disorder, single episode, unspecified; L89.152 Pressure ulcer of sacral region, stage 2; J44.9 Chronic obstructive pulmonary disease, unspecified; R13.10 Dysphagia, unspecified; Z88.0 Allergy status to penicillin; Z82.49 Family history of ischemic heart disease and other diseases of the circulatory system
CPT/HCPCS: 36415; 71010; 74230; 80048; 81001; 82040; 82962; 85025; 85027; 85610; 90732; 94640; 94760; 99285; G8978-GP; G8979-GP; G8980-GP; G8988-GO; G8989-GO; G8990-GO; G8996-GN; G8997-GN; J1650; J3480; J7030; J7042